=== PATIENT | male | born 1995 | race American Indian/Alaskan Native ===

== ENCOUNTER 2017-07-21 14:01 | Emergency (ER) | payer MEDICARE ==
[2017-07-21 15:37] LABS: Basophils # (Auto) 0.1 K/mm3 (0.0-0.1); Basophils % (Auto) 0.5 % (0.0-1.8); Eosinophils % (Auto) 0.4 % (0.0-4.3); Hemoglobin 16.3 gm/dl (11.8-15.2); Lymphocytes # (Auto) 1.8 K/mm3 (1.2-5.4); Lymphocytes % (Auto) 15.3 % (13.4-35.0); Mean Corpuscular HGB Conc 35 % (32-34); Mean Corpuscular Hemoglobin 30 pg (28-32); Mean Corpuscular Volume 86 fl (84-94); Monocytes # (Auto) 1.2 K/mm3 (0.0-0.8); Platelet Count 262 K/mm3 (140-440); Red Blood Count 5.47 M/mm3 (3.65-5.03); Red Cell Distribution Width 14.9 % (13.2-15.2)
[2017-07-21 16:13] LABS: BUN/Creatinine Ratio 14; Blood Urea Nitrogen 10 mg/dL (9-20); Calcium 9.7 mg/dL (8.4-10.2); Hemolysis Index 13
[2017-07-21 21:20] VITALS: BP 123/64
--- NOTE | 2017-07-21 21:28 | Emergency Department Report ---
ED Chest Pain HPI - General Chief Complaint: Arrhythmia/Palpitations Stated Complaint: ABDOMINAL PAIN Time Seen by Provider: 07/21/17 21:09 Source: patient Mode of arrival: Ambulatory Limitations: No Limitations - History of Present Illness Initial Comments: 21-year-old -[place]ub[place] male presents to the emergency department with complaint of some intermittent twinges of chest pain as well as palpitations. He also complains of some intermittent left shoulder pain with some paresthesias to the left arm. He says that it has happened about 4 or 5 times over the past week but also has happened in the past but usually not as often. When it occurs it lasts "all morning." Patient is a tobacco smoker. He also admits to doing ecstasy a few days ago. He denies any alcohol use. He has a history of anxiety and bipolar disorder for which he is on Zoloft and Seroquel but admits that he does not take that medication regularly as "it makes me feel weird." He does not currently have a primary care physician. No recent travel or sick contacts at home. He has not taken anything for symptoms prior to presentation. He denies any suicidal or homicidal ideations or any hallucinations. Severity scale (0 -10): 0 - Related Data Previous Rx's Medication Instructions Recorded Last Taken Type Nitrofurantoin Monohyd/M-Cryst 100 mg PO BID #14 capsule 07/21/17 Unknown Rx [Macrobid 100 mg Capsule] Allergies Allergy/AdvReac Type Severity Reaction Status Date / Time No Known Allergies Allergy Unverified 07/21/17 15:04 Heart Score - HEART Score History: Slightly suspicious EKG: Non-specific Age: < 45 Risk factors: 1-2 risk factors Troponin: < normal limit HEART Score: 2 - Critical Actions Critical Actions: 0-3 pts:0.9-1.7%risk of adverse cardiac event.Candidate for discharge ED Review of Systems ROS: Stated complaint: ABDOMINAL PAIN Other details as noted in HPI Comment: All other systems reviewed and negative Constitutional: denies: chills, fever Eyes: denies: eye pain, eye discharge, vision change ENT: denies: ear pain, throat pain Respiratory: denies: cough, shortness of breath, wheezing Cardiovascular: chest pain, palpitations Gastrointestinal: denies: abdominal pain, nausea, diarrhea Genitourinary: denies: urgency, dysuria Musculoskeletal: denies: back pain, joint swelling, arthralgia Skin: denies: rash, lesions Neurological: paresthesias. denies: weakness ED Past Medical Hx - Past Medical History Previous Medical History?: Yes Hx Psychiatric Treatment: Yes (anxiety, bipolar) - Surgical History Past Surgical History?: Yes Additional Surgical History: right hand tendon repair - Social History Smoking Status: Current Every Day Smoker Substance Use Type: Alcohol, Marijuana - Medications Home Medications: Home Medications Medication Instructions Recorded Confirmed Last Taken Type Nitrofurantoin Monohyd/M-Cryst 100 mg PO BID #14 capsule 07/21/17 Unknown Rx [Macrobid 100 mg Capsule] ED Physical Exam - General Limitations: No Limitations - Other Other exam information: GENERAL: The patient is well-developed well-nourished. HENT: Normocephalic. Atraumatic. Patient has moist mucous membranes. EYES: Extraocular motions are intact. Pupils equal reactive to light bilaterally. NECK: Supple. Trachea is midline. CHEST/LUNGS: Clear to auscultation. There is no respiratory distress noted. HEART/CARDIOVASCULAR: Regular. There is no tachycardia. There is no murmur. ABDOMEN: Abdomen is soft, nontender. Patient has normal bowel sounds. There is no abdominal distention. SKIN: Skin is warm and dry. NEURO: The patient is awake, alert, and oriented. The patient is cooperative. The patient has no focal neurologic deficits. The patient has normal speech. MUSCULOSKELETAL: There is no tenderness or deformity. There is no limitation range of motion. There is no evidence of acute injury. ED Course Vital Signs 07/21/17 07/21/17 07/21/17 15:04 17:28 21:19 Temperature 99.1 F 97.9 F 98.2 F Pulse Rate 102 H 100 H 94 H Respiratory 18 16 16 Rate Blood Pressure 128/71 132/77 Blood Pressure 123/64 [Right] O2 Sat by Pulse 99 100 98 Oximetry 07/21/17 21:20 Temperature Pulse Rate Respiratory 16 Rate Blood Pressure Blood Pressure [Right] O2 Sat by Pulse 98 Oximetry PATRICIO score - Patricio Score Age > 65: (0) No Aspirin use within the Past 7 Days: (0) No 3 or more CAD Risk Factors: (0) No 2 or more Angina events in past 24 hrs: (1) Yes Known CAD with more than 50% Stenosis: (0) No Elevated Cardiac Markers: (0) No ST Deviation Greater than 0.5mm: (0) No PATRICIO Score: 1 ED Medical Decision Making - Lab Data Result diagrams: 07/21/17 15:24 07/21/17 15:24 - EKG Data -: EKG Interpreted by Me EKG shows normal: sinus rhythm, axis, intervals, QRS complexes, ST-T waves ( there are some T-wave inversions to some of the anterolateral leads, early repolarization) Rate: normal - EKG Data When compared to previous EKG there are: previous EKG unavailable Interpretation: other (sinus rhythm, normal axis, normal intervals, there are a few T-wave inversions to some of the anterolateral leads. No ST elevation ME) - Radiology Data Radiology results: image reviewed interpreted by me: Chest x-ray does not show any acute process. There are no pleural effusions, obvious pneumonia and there is no pneumothorax. - Medical Decision Making Patient presents with some intermittent chest pains and some occasional left arm paresthesias. Physical exam he does not appear in any acute distress. Normal sounding heart and lungs to auscultation. There is no murmur or rub. EKG shows some early repolarization and the first EKG also showed a few T-wave inversions to the anterolateral leads that appeared to have improved on the second EKG. His labs do not show any significant leukocytosis. There are no electrolyte abnormalities. He had a negative d-dimer and a negative troponin. However his urine drug screen is positive for amphetamine, cocaine and marijuana. Patient says that he did one or 2 doses of ecstasy a few days ago. His vital signs were stable throughout his ED course including being afebrile. He is low on the Heart score criteria. He has a PATRICIO score of one if his pain is considered angina and 0 if not. Patient was reevaluated multiple times for multiple hours and appears stable. He says he is feeling improved. His urinalysis showed 17 WBCs in the urine so he'll be placed on some Macrobid for a urinary tract infection. He was given a referral for the health department in case he wanted to look into further STD testing at says he has not been sexually active for many months. He was given a referral for primary care and cardiology. He was encouraged to return to the emergency Department with any worsening of symptoms or any acute distress. - Differential Diagnosis ME, pericarditis, PE, costochondritis, GERD Critical Care Time: No Critical care attestation.: If time is entered above; I have spent that time in minutes in the direct care of this critically ill patient, excluding procedure time. ED Disposition Clinical Impression: Intermittent chest pain, Positive urine drug screen UTI (urinary tract infection) Qualifiers: Urinary tract infection type: acute cystitis Hematuria presence: without hematuria Qualified Code(s): N30.00 - Acute cystitis without hematuria Disposition: TO HOME OR SELFCARE Is pt being admited?: No Condition: Stable Instructions: Chest Pain (ED), Urinary Tract Infection in Men (ED) Additional Instructions: Please follow up with a primary care physician. I have given you a referral for a local business account manager, Dr. Fuller, occasionally but to follow up regarding her intermittent chest pains. Return to the emergency Department with any worsening of her symptoms or any acute distress. I've also given a referral for the local health department in case he would like to look into checking for STDs. I have also given you multiple referrals for primary care physicians. Please stay away from any further illicit drug use. Prescriptions: Nitrofurantoin Monohyd/M-Cryst [Macrobid 100 mg Capsule] 100 mg PO BID #14 capsule Referrals: AMOS BLAKE MD [Primary Care Provider] - 3-5 Days MAKAYLA FULLER MD [Staff Physician] - 3-5 Days PEDRO RIVERO MD [Staff Physician] - 3-5 Days [facility] [Outside] - 3-5 Days [facility] [Outside] - 3-5 Days Time of Disposition: 22:23
[2017-07-21 21:47] LABS: Bilirubin,Urine NEG (Negative); Blood,Urine NEG (Negative); Color,Urine Yellow (Yellow); Mucus,Urine 2+ /HPF
[2017-07-21 21:55] LABS: Benzodiazepines Screen,Urine PRESUMPTIVE NEGATIVE; Methadone Screen,Urine PRESUMPTIVE NEGATIVE; Opiate Screen,Urine PRESUMPTIVE NEGATIVE
--- NOTE | 2017-07-21 22:05 | XRay Report ---
FINAL REPORT PROCEDURE: XR CHEST ROUTINE 2V TECHNIQUE: PA and lateral chest radiographs were obtained. CPT 62155 HISTORY: CP COMPARISON: No prior studies are available for comparison. FINDINGS: Heart: Normal. Mediastinum/Vessels: Normal. Lungs/Pleural space: Normal. Bony thorax: No acute osseous abnormality. Other: IMPRESSION: Normal examination.
[2017-07-21] MEDS ORDERED: BABY ASPIRIN PO ONE (22:13)
[2017-07-21 22:15] LABS: Amphetamine Screen,Urine PRESUMPTIVE POSITIVE; Cannabinoid Screen,Urine PRESUMPTIVE POSITIVE; Cocaine Screen,Urine PRESUMPTIVE POSITIVE
== END 2017-07-21 22:41 | disposition home or self-care (01) ==
LOC: ED 14:01
DX: R07.89 Other chest pain (principal); N39.0 Urinary tract infection, site not specified; F17.200 Nicotine dependence, unspecified, uncomplicated; F12.10 Cannabis abuse, uncomplicated
CPT/HCPCS: 36415; 71046; 80048; 80307; 81001; 84484; 85025; 85379; 93005; 93010; 99284; G0480; 80320

== ENCOUNTER 2017-09-18 18:53 | Emergency (ER) | payer MEDICARE ==
[2017-09-18 19:46] LABS: Hematocrit 42.3 % (35.5-45.6); Hemoglobin 14.8 gm/dl (11.8-15.2); Mean Corpuscular HGB Conc 35 % (32-34); Mean Corpuscular Hemoglobin 30 pg (28-32); Mean Corpuscular Volume 85 fl (84-94); Platelet Count 262 K/mm3 (140-440); Red Blood Count 4.96 M/mm3 (3.65-5.03); Red Cell Distribution Width 13.2 % (13.2-15.2)
[2017-09-18 20:00] LABS: BUN/Creatinine Ratio 13; Blood Urea Nitrogen 9 mg/dL (9-20); Calcium 9.8 mg/dL (8.4-10.2); Hemolysis Index 0
--- NOTE | 2017-09-18 20:24 | XRay Report ---
FINAL REPORT PROCEDURE: XR CHEST ROUTINE 2V TECHNIQUE: PA and lateral chest radiographs were obtained. CPT 42643 HISTORY: sob COMPARISON: 07/21/2017 FINDINGS: Heart: Normal. Mediastinum/Vessels: Normal. Lungs/Pleural space: Normal. Bony thorax: No acute osseous abnormality. Other: IMPRESSION: Normal examination.
[2017-09-18] MEDS ORDERED: LIDOCAINE VISCOUS 2% PO ONE (20:54)
[2017-09-18] MEDS ORDERED: DELTASONE PO ONE (20:54)
[2017-09-18] MEDS ORDERED: MOTRIN PO ONE ×2 (20:54→21:32)
[2017-09-18] MEDS ORDERED: DUONEB *Not for PRN Use IH ONE (20:54)
[2017-09-18] MEDS ORDERED: ULTRAM PO ONE (21:34)
--- NOTE | 2017-09-18 21:36 | Emergency Department Report ---
HPI - General Chief Complaint: Dyspnea/Respdistress Time Seen by Provider: 09/18/17 20:54 - HPI HPI: The patient's 22-year-old male who presents for evaluation of chest pain. The patient reports chest pain for the past one day, midsternal in location, sharp in quality, exacerbated with movement of the chest wall. He also has secondary complaints of anxiety, achy headache for the past day. The patient denies fever , neck pain, parasthesias, dyspnea, cough, hemoptysis, palpitations, dizziness, syncope, unilateral leg swelling, calf muscle pain. Patient also denies cocaine or other stimulant use, history of DVT or PE, recent immobilization, or history of cancer. ED Past Medical Hx - Past Medical History Hx Psychiatric Treatment: Yes (anxiety, bipolar) - Surgical History Additional Surgical History: right hand tendon repair - Social History Smoking Status: Current Every Day Smoker Substance Use Type: Alcohol, Marijuana - Medications Home Medications: Home Medications Medication Instructions Recorded Confirmed Last Taken Type Nitrofurantoin Monohyd/M-Cryst 100 mg PO BID #14 capsule 07/21/17 Unknown Rx [Macrobid 100 mg Capsule] Cyclobenzaprine HCl [Flexeril 5 MG 5 mg PO Q8HR PRN #10 tab 09/18/17 Unknown Rx TAB] ED Review of Systems ROS: Stated complaint: SOB Other details as noted in HPI Constitutional: denies: fever ENT: denies: throat or neck pain Respiratory: denies: cough, shortness of breath Cardiovascular: reports chest pain Endocrine: denies unexplained weight loss or gain Gastrointestinal: denies: abdominal pain, nausea Genitourinary: denies: dysuria Musculoskeletal: denies: leg swelling Skin: denies: rash Neurological: denies: headache Hematological/Lymphatic: denies: easy bleeding or easy bruising Psych: denies sadness or hopelessness Physical Exam - Physical Exam Vital Signs: Vital Signs 09/18/17 19:05 Temperature 98.3 F Pulse Rate 85 Respiratory 20 Rate Blood Pressure 143/83 O2 Sat by Pulse 100 Oximetry Physical Exam: General: well-nourished, well-developed, no acute distress Head: Normocephalic, atraumatic Eyes: normal sclera ENT: Mucous membranes are pink and moist Neck: trachea midline, neck supple, No neck stiffness, no cervical adenopathy Respiratory: Breath sounds equal bilaterally, no wheezing, rales, or rhonchi Cardio: S1 and S2 present, no murmurs, rubs, gallops, capillary refill is brisk Abdomen: Normoactive bowel sounds, soft abdomen, no rigidity, no guarding or rebound tenderness Chest WALL/Back: No tenderness to palpation of the chest wall, no CVA tenderness with percussion Musc: No pitting edema Skin: No rash Neuro: no facial drooping, normal speech Psych: Normal affect ED Course Vital Signs 09/18/17 19:05 Temperature 98.3 F Pulse Rate 85 Respiratory 20 Rate Blood Pressure 143/83 O2 Sat by Pulse 100 Oximetry ED Medical Decision Making - Lab Data Result diagrams: 09/18/17 19:25 09/18/17 19:25 - Medical Decision Making The patient was seen and examined by myself. The patient is placed on a environmental monitoring specialist and continuous pulse ox. On initial evaluation, the patient was found to be in no distress. EKG was negative for findings suggestive of acute cardiac infarct. Labs and imaging are obtained. The patient was given pain medicine. Chest x-ray is negative for pneumothorax, focal consolidation, pulmonary vascular congestion, pleural effusion, or other obvious acute cardiopulmonary disease process. The patient was reevaluated and reported that their symptoms were markedly improved. As the patient has a JOURDAN risk score less than 2, and a well's score less than 2, the patient is at low risk of ACS or pulmonary emboli etiology of their symptoms. The patient is stable for discharge with outpatient follow-up. The patient is given follow-up and return instructions. The patient expressed understanding and agreed with the plan. The patient is discharged in stable condition. Critical care attestation.: If time is entered above; I have spent that time in minutes in the direct care of this critically ill patient, excluding procedure time. ED Disposition Clinical Impression: Acute non intractable tension-type headache, Acute chest pain Disposition: - TO HOME OR SELFCARE Is pt being admited?: No Does the pt Need Aspirin: No Condition: Stable Instructions: Chest Pain (ED), Costochondritis (ED), Acute Headache (ED) Prescriptions: Cyclobenzaprine HCl [Flexeril 5 MG TAB] 5 mg PO Q8HR PRN #10 tab PRN Reason: Pain Referrals: [facility] [Outside] - 3-5 Days Time of Disposition: 21:34
[2017-09-18 21:51] VITALS: BP 114/75
== END 2017-09-18 21:51 | disposition home or self-care (01) ==
LOC: ED 18:53
DX: R07.89 Other chest pain (principal); G44.209 Tension-type headache, unspecified, not intractable; F41.9 Anxiety disorder, unspecified; F17.200 Nicotine dependence, unspecified, uncomplicated; F12.10 Cannabis abuse, uncomplicated; F31.9 Bipolar disorder, unspecified
CPT/HCPCS: 36415; 71046; 80048; 84484; 85027; 93005; 93010

== ENCOUNTER 2018-10-14 14:01 | Emergency (ER) | payer MEDICARE ==
--- NOTE | 2018-10-14 14:16 | Event Note ---
ED Screening Note Date of service: 10/14/18 Time: 14:10 ED Screening Note: 23 y o m presents with left sided abd pain x 2 days stated took some tylenol type pain med he got from [employer] This initial assessment/diagnostic orders/clinical plan/treatment(s) is/are subject to change based on patients health status, clinical progression and re- assessment by fellow clinical providers in the ED. Further treatment and workup at subsequent clinical providers discretion. Patient/guardian urged not to elope from the ED as their condition may be serious if not clinically assessed and managed. Initial orders include: ua,bmp,cbc
[2018-10-14] MEDS ORDERED: DELTASONE PO ONE (17:19)
[2018-10-14] MEDS ORDERED: BICILLIN L-A IM ONE (17:19)
[2018-10-14] MEDS ORDERED: MOTRIN PO ONE (17:19)
[2018-10-14] MEDS ORDERED: LIDOCAINE VISCOUS 2% PO ONE (17:20)
--- NOTE | 2018-10-14 17:26 | Emergency Department Report ---
ED General Adult HPI - General Chief complaint: Abdominal Pain Stated complaint: ABD PAIN Time Seen by Provider: 10/14/18 14:09 Source: patient, EMS Mode of arrival: Ambulatory Limitations: No Limitations - History of Present Illness Initial comments: This is a 23-year-old male. Patient comes in for sore throat, pain in the left lower quadrant that aches and sharp intermittent. Does admit to nausea early this morning but has resolved. Patient denies any fever. Patient denies any vomiting. Last BM was today. Patient reports that it hurts to swallow. Denies any diarrhea has no past medical history takes no medications on a daily basis and has no known drug allergies. Onset/Timin -: days(s) Location: abdomen Radiation: non-radiation Severity scale (0 -10): 8 Quality: aching, dull Consistency: intermittent Improves with: none Worsens with: none Associated Symptoms: other (sore throat). denies: confusion, chest pain, cough, fever/chills, loss of appetite, malaise Treatments Prior to Arrival: other (cold medicine) - Related Data Previous Rx's Medication Instructions Recorded Last Taken Type Nitrofurantoin Monohyd/M-Cryst 100 mg PO BID #14 capsule 07/21/17 Unknown Rx [Macrobid 100 mg Capsule] Cyclobenzaprine HCl [Flexeril 5 MG 5 mg PO Q8HR PRN #10 tab 09/18/17 Unknown Rx TAB] Ibuprofen [Motrin 600 MG tab] 600 mg PO Q8H PRN #21 tablet 10/14/18 Unknown Rx Allergies Allergy/AdvReac Type Severity Reaction Status Date / Time No Known Allergies Allergy Unverified 07/21/17 15:04 ED Review of Systems ROS: Stated complaint: ABD PAIN Other details as noted in HPI Comment: All other systems reviewed and negative ENT: throat pain Gastrointestinal: abdominal pain, nausea ED Past Medical Hx - Past Medical History Previous Medical History?: Yes Hx Psychiatric Treatment: Yes (anxiety, bipolar) - Surgical History Past Surgical History?: Yes Additional Surgical History: right hand tendon repair - Social History Smoking Status: Current Every Day Smoker Substance Use Type: Alcohol - Medications Home Medications: Home Medications Medication Instructions Recorded Confirmed Last Taken Type Nitrofurantoin Monohyd/M-Cryst 100 mg PO BID #14 capsule 07/21/17 Unknown Rx [Macrobid 100 mg Capsule] Cyclobenzaprine HCl [Flexeril 5 MG 5 mg PO Q8HR PRN #10 tab 09/18/17 Unknown Rx TAB] Ibuprofen [Motrin 600 MG tab] 600 mg PO Q8H PRN #21 tablet 10/14/18 Unknown Rx ED Physical Exam - General Limitations: No Limitations General appearance: alert - Eye Eye exam: Present: normal appearance - Expanded ENT Exam Expanded Throat exam: Positive: tonsillar erythema, tonsillomegaly, tonsillar exudate - Neck Neck exam: Present: tenderness, full ROM, lymphadenopathy - Respiratory Respiratory exam: Present: normal lung sounds bilaterally. Absent: respiratory distress - Cardiovascular Cardiovascular Exam: Present: regular rate, normal rhythm. Absent: systolic murmur, diastolic murmur, rubs, gallop - GI/Abdominal GI/Abdominal exam: Present: soft, normal bowel sounds - Extremities Exam Extremities exam: Present: normal inspection - Back Exam Back exam: Present: normal inspection - Neurological Exam Neurological exam: Present: alert, oriented X3 - Psychiatric Psychiatric exam: Present: normal affect, normal mood - Skin Skin exam: Present: warm, dry, intact, normal color. Absent: rash ED Course Vital Signs 10/14/18 14:02 Temperature 98.6 F Pulse Rate 137 H Respiratory 18 Rate Blood Pressure 129/82 O2 Sat by Pulse 98 Oximetry ED Medical Decision Making - Medical Decision Making This is a 23-year-old male. Patient comes in for sore throat, pain in the left lower quadrant that aches and sharp intermittent. Does admit to nausea early this morning but has resolved. Patient denies any fever. Patient denies any vomiting. Last BM was today. Patient reports that it hurts to swallow. Denies any diarrhea has no past medical history takes no medications on a daily basis and has no known drug allergies. Patient's given penicillin 1.2 million units IM, lidocaine 15 mL's by mouth, prednisone 40 mg by mouth and ibuprofen 540 mg by mouth. - Differential Diagnosis tonsillitis, pharyngitis, acute abdomen, diverticulosis Critical care attestation.: If time is entered above; I have spent that time in minutes in the direct care of this critically ill patient, excluding procedure time. ED Disposition Clinical Impression: Pharyngitis Qualifiers: Pharyngitis/tonsillitis etiology: unspecified etiology Qualified Code(s): J02.9 - Acute pharyngitis, unspecified Disposition: DC- TO HOME OR SELFCARE Is pt being admited?: No Does the pt Need Aspirin: No Condition: Stable Instructions: Strep Throat (ED) Prescriptions: Ibuprofen [Motrin 600 MG tab] 600 mg PO Q8H PRN #21 tablet PRN Reason: Pain Referrals: PRIMARY CARE, [Primary Care Provider] - 3-5 Days
[2018-10-14 18:00] VITALS: BP 122/72
== END 2018-10-14 18:00 | disposition home or self-care (01) ==
LOC: ED 14:01
DX: J02.9 Acute pharyngitis, unspecified (principal); F17.200 Nicotine dependence, unspecified, uncomplicated; F41.9 Anxiety disorder, unspecified; F31.9 Bipolar disorder, unspecified; Z79.899 Other long term (current) drug therapy
CPT/HCPCS: 96372; 99283; J0561; J7512